=== PATIENT | female | born 1950 | race Caucasian/White ===

== ENCOUNTER 2016-09-24 16:27 | Emergency (ER) | payer OTHER ==
[~2016-09-24] VITALS: Ht 162.6 cm; Wt 91.7 kg
[~2016-09-24 16:27] MED LIST: AMITRIPTYLINE H10 MG PO; AMLODIPINE BESYL5 MG PO; AMOXICILLIN500 M1 PO; ANTACID EXTRA1 EAC1 PO; ASCORBIC ACID500 M3 PO; ASPIRIN325 MG PO; ATELVIA35 MG PO; BIOTIN5 MG PO; BORAGE OIL PO; COLLAGEN PLUS1 EACH PO; CRESTOR10 MG PO; CYCLOBENZAPRINE5 MG PO; DECADRON1 MG PO; DECADRON2 MG PO; ENDOCET 5-3251 EACH PO; FISH OIL 1,0001 EAC8 PO; FISH OIL300 MG PO; FISH PO; FLAX PO; FLEXERIL5 MG PO; HYDROCHLOROTHIA25 MG PO; LEVETIRACETAM500 MG PO; LOVENOX40 MG/0.4 SC; MAGNESIUM250 M1 PO; METOPROLOL SUCC50 MG PO; MIRALAX255 GM PO; MULTI VITAMIN1 EACH PO; MULTIVITAMIN1 EAC2 PO; NABUMETONE750 MG PO; NAUZENE TABLET1 EACH PO; NEXIUM20 MG PO; OMEGA 3-6-9 CO1 EACH PO; PEPCID20 MG PO; PERCOCET 10/1 TABLET PO; PERCOCET 5/31 TABLET PO; POTASSIUM-9999 MG PO; PREVACID15 MG PO; STOOL SOFTENER100 M1 PO; STOOL SOFTENER100 MG PO; SUPER B COMP1 TABLET PO; VITAMIN A10000 UNIT PO; VITAMIN D31000 UNI2 PO; VITAMIN E400 UNIT PO; ZANTAC150 MG PO
[2016-09-24] MEDS ORDERED: ASPIRIN325 MG PO (21:02)
[2016-09-24] MEDS ORDERED: MOTRIN IB200 MG PO (21:03)
[2016-09-24] MEDS ORDERED: NAUZENE TABLET1 EACH PO (21:06)
[2016-09-24] MEDS ORDERED: LIDOCAINE700 MG TD (21:11)
[2016-09-24] MEDS ORDERED: CINNAMON500 MG PO (21:13)
[2016-09-24] MEDS ORDERED: BIOTIN1000 MCG PO (21:14)
[2016-09-24] MEDS ORDERED: COLLAGEN PLUS1 EACH PO (21:14)
[2016-09-24] MEDS ORDERED: MEDROL DOSEPAK4 MG PO (21:19)
[2016-09-24] MEDS ORDERED: VALIUM5 MG PO (21:19)
[2016-09-24 21:33] VITALS: BP 136/74
== END 2016-09-24 21:36 | disposition home or self-care (01) ==
LOC: EME 16:27
DX: M54.16 Radiculopathy, lumbar region (principal); G89.29 Other chronic pain; I10 Essential (primary) hypertension; Z96.651 Presence of right artificial knee joint; Z96.642 Presence of left artificial hip joint; Z87.891 Personal history of nicotine dependence
CPT/HCPCS: 99281; 99284; J1170; J7512

== ENCOUNTER 2017-03-31 12:13 | Day surgery (SDC) | payer OTHER ==
[~2017-03-31 12:13] MED LIST changes: +BIOTIN1000 MCG PO; +CINNAMON500 MG PO; +LIDOCAINE700 MG TD; +MEDROL DOSEPAK4 MG PO; +MOTRIN IB200 MG PO; +VALIUM5 MG PO
== END 2017-03-31 14:15 | disposition home or self-care (01) ==
LOC: PAIN 12:13 → SDC 12:45 → PAIN 12:45
DX: M47.26 Other spondylosis with radiculopathy, lumbar region (principal); M48.06 Spinal stenosis, lumbar region; K21.9 Gastro-esophageal reflux disease without esophagitis; I10 Essential (primary) hypertension; E66.9 Obesity, unspecified; Z68.33 Body mass index [BMI] 33.0-33.9, adult; M06.9 Rheumatoid arthritis, unspecified; Z87.891 Personal history of nicotine dependence; Z96.643 Presence of artificial hip joint, bilateral; Z96.651 Presence of right artificial knee joint; Z79.82 Long term (current) use of aspirin; Z79.891 Long term (current) use of opiate analgesic
CPT/HCPCS: J1100; J2250; J3010

== ENCOUNTER 2017-05-02 09:17 | Day surgery (SDC) | payer OTHER ==
[2017-05-02] MEDS ORDERED: OXYCODONE HCL15 MG PO (09:40)
[2017-05-02] MEDS ORDERED: MELOXICAM15 MG PO (09:44)
== END 2017-05-02 11:07 | disposition home or self-care (01) ==
LOC: PAIN 09:17 → SDC 10:00 → PAIN 11:07
PROC: 3E0S33Z Introduction of Anti-inflammatory into Epidural Space, Percutaneous Approach (ICD-10-PCS; principal; 2017-05-02)
DX: M47.26 Other spondylosis with radiculopathy, lumbar region (principal); Z79.891 Long term (current) use of opiate analgesic; M06.9 Rheumatoid arthritis, unspecified; Z87.891 Personal history of nicotine dependence; I10 Essential (primary) hypertension; Z96.653 Presence of artificial knee joint, bilateral; Z96.642 Presence of left artificial hip joint; Z79.82 Long term (current) use of aspirin; Z88.8 Allergy status to other drugs, medicaments and biological substances
CPT/HCPCS: J1030; J1100; J2250; J3010

== ENCOUNTER 2017-06-21 09:20 | Day surgery (SDC) | payer OTHER ==
[~2017-06-21] VITALS: Ht 162.6 cm; Wt 90.7 kg
[~2017-06-21 09:20] MED LIST changes: +ALL DAY ALLERGY10 MG PO; +FLAX OIL1000 MG PO; +FOLIC ACID1 MG PO; +LUTEIN 15 MG S1 EACH PO; +MELOXICAM15 MG PO; +METHOTREXATE2.5 MG PO; +OXYCODONE HCL15 MG PO; +VITAMIN D31000 UNIT PO
== END 2017-06-21 11:02 | disposition home or self-care (01) ==
LOC: PAIN 09:20 → SDC 10:00 → PAIN 10:00
DX: M47.26 Other spondylosis with radiculopathy, lumbar region (principal); M51.16 Intervertebral disc disorders with radiculopathy, lumbar region; M54.5 Low back pain; G89.29 Other chronic pain; M48.061 Spinal stenosis, lumbar region without neurogenic claudication; M06.9 Rheumatoid arthritis, unspecified; I10 Essential (primary) hypertension; Z87.891 Personal history of nicotine dependence; Z79.891 Long term (current) use of opiate analgesic; K21.9 Gastro-esophageal reflux disease without esophagitis; E78.5 Hyperlipidemia, unspecified
CPT/HCPCS: J1100; J2250; J3010

== ENCOUNTER 2018-03-06 10:49 | Day surgery (SDC) | payer OTHER ==
[~2018-03-06] VITALS: Ht 162.6 cm; Wt 82.0 kg
== END 2018-03-06 12:15 | disposition home or self-care (01) ==
LOC: PAIN 10:49 → SDC 11:30 → PAIN 11:30
DX: M51.16 Intervertebral disc disorders with radiculopathy, lumbar region (principal); M48.061 Spinal stenosis, lumbar region without neurogenic claudication; M06.9 Rheumatoid arthritis, unspecified; I10 Essential (primary) hypertension; K21.9 Gastro-esophageal reflux disease without esophagitis; Z87.891 Personal history of nicotine dependence; Z79.891 Long term (current) use of opiate analgesic; Z79.82 Long term (current) use of aspirin
CPT/HCPCS: J1100; J2250